=== PATIENT | female | born 1960 | race Caucasian/White ===

== ENCOUNTER 2023-04-29 10:12 | Emergency (ER) | payer BC, SELFPAY ==
[2023-04-29 10:17] VITALS: BP 113/77; PULSE 65; RESP 15; TEMP 36.8; O2SAT 100
--- NOTE | 2023-04-29 10:25 | ED.GENADUL_ITS ---
Discharge Plan Disposition Patient Disposition: Home Discharge Details Clinical Impression: Immunization, tetanus-diphtheria, Forehead laceration, Pain of right thumb Primary Care Provider: Unknown,Unknown ED Provider: John Keen Home Meds and New Rx's Prescriptions: Continued omeprazole 40 mg Capsule,Delayed Release(Dr/Ec) 40 mg DAILY Discharge Instructions Instructions: Facial Laceration (ED) Additional Instructions: You were seen in the emergency department for your fall. You had stitches placed which will need to be removed in 1 week. Please return to the emergency department or follow-up with your primary care provider to have your stitches removed. As we discussed, if you develop any redness streaking signs of infection fevers or any foul-smelling drainage from your wound please return to the emergency department. Your tetanus was updated in the emergency department. For your pain please take medications as follows: 1. Take acetaminophen (Tylenol), 1,000 mg (two 500 mg tabs) every 6 hours 2. Take ibuprofen (Advil), 400 mg every 6 hours. Discharge Data Discharge Date/Time-TO BE ENTERED AT DEPARTURE: 04/29/23 12:03 Medical Decision Making This is an overall very well-appearing normothermic and not tachycardic ytymb-zqta-tchdozul female with fall and forehead laceration which will require primary closure following irrigation. We will update patient's tetanus status. [place] [facility] Criteria Major Criteria GCS < 15 : [No] Open or depressed skull Fx: [No] Sign of Basilar Skull Fx: [No] > 2 Episodes Vomiting: [No] Anticoagulation: [No] Age > 65: [No] Minor Criteria Retrograde Amnesia >30min: [No] Dangerous Mechanism: [No] Per [place] [facility] CT rules, CT head not obtained. The patient had a GCS of 15, no open/depressed skull fracture, no signs of basilar skull fracture (hemotympanum, raccoon eyes, zaman's sign, CSF [place]/Rhinorrhea), no vomiting, an d is less than 65 years of age. Per [facility] criteria, cervical CT not obtained. The patient had no c-spine midline tenderness, no evidence of intoxication, was AAOx3, had no focal neurological deficits, and no painful distracting injuries. Patient does have a left shoulder superficial abrasion but no underlying bony tenderness and full range of motion so my suspicion is exceedingly low dislocation. Patient does have some right hip tenderness but has been ambulatory since her fall and so my suspicion for any acute osseous abnormality is exceedingly low based on the patient's nongeriatric age so I did not obtain plain films. Patient does have some right thumb pain and did fall with a racquet in her hand concerning for the possibility of an ulnar collateral ligament injury. She has no significant laxity of her ulnar collateral ligament and no significant weakness of her pinch. Will obtain plain films to reassess. 11:50 AM Patient had negative right hand plain films. Based on her lack of weakness on pincer grasp and her lack of weakness on ulnar stress testing of her right thumb I felt that the risks of immobilization outweighed the benefit. We discussed risks of immobilization specifically decreased mobility as patient is a aphlf-wecy-rceybcgi teacher. I did provide her with a Velcro wrist brace such that she could ice her right hand and rest over the next several days. I advised that if she had any significant weakness or pain that did not resolve that she should follow-up next week with either her primary care provider or an orthopedic surgeon as there is certainly a possibility that she could have injured her metacarpalphalangeal ulnar ligament of her thumb. She understood her follow-up medications and was discharged with recommendation for as needed acetaminophen and ibuprofen for pain. HPI General Date/Time Provider Initiated Documentation: 04/29/23 10:25 . HPI Narrative: This is a previously healthy qrdom-ibia-lkbisfiw 63-year-old female arrived to the emergency department via private vehicle in the setting of a fall. Patient was reportedly playing pickle ball this morning when she tripped after falling backwards. She landed on her right side. She was holding a racquet in her right hand when she fell. She sustained a laceration to the right forehead. She did not lose consciousness. She is not on any anticoagulation. She is having pain in her right thumb and right shoulder. No preceding syncope nausea nor vomiting. She has been ambulatory since her fall. She had some pain in her right hip. She was in her usual state of health earlier this morning. 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 Related Data Home Medications Medication Instructions Recorded Confirmed omeprazole 40 mg capsule,delayed 40 mg DAILY 04/29/23 04/29/23 release Allergies Allergy/AdvReac Type Severity Reaction Status Date / Time No Known Allergies Allergy Unverified 04/29/23 10:23 General Stated Complaint: Fall/Non TraumaCriteria MARY: 3 PFSH All Active Problems (Updated 04/29/23 @ 10:40 by John Keen MD) Immunization, tetanus-diphtheria (Acute) Forehead laceration (Acute) Pain of right thumb (Acute) Social History Smoking/Tobacco Use Status: Never Smoking risk assessment performed?: Yes Alcohol Intake: never Substance use type: does not use Housing: house Do you feel safe at home: Yes Do you feel safe in your relationship?: Yes Exam Narrative Exam Narrative: General: Well-appearing in no acute distress speaking in complete sentences. Head: Normocephalic, atraumatic. Eye: Extraocular eye movements intact. No conjunctival injection. No scleral icterus. Ear, nose, mouth, throat: Grossly normal inspection. Normal voice, handling secretions normally. No hemotympanum bilaterally. No septal hematoma. Neck: Trachea midline. No midline cervical spinal tenderness. Cardiovascular: Well-perfused distal extremities. Regular rate and rhythm Respiratory: Nonlabored respiration. Clear lungs bilaterally. Gastrointestinal: Nondistended abdomen. Musculoskeletal: No edema. Moving all 4 extremities spontaneously. Right shoulder with superficial abrasion. Full range of motion right shoulder. Right upper extremity no tenderness throughout upper arm elbow and right forearm and wrist. Right hand tenderness at the base of the right thumb. No significant laxity on stress testing of the right thumb. Full range of motion right thumb. 2+ radial pulse. Sensation motor function intact in the right hand across the radial, median, and ulnar nerve distributions. No significant weakness on right finger pincer grasp. Full range of motion right hip. No lacerations nor abrasions to right hip. Skin: Normal for age and race, grossly normal temperature and turgor. No acute rash. Neurologic: Alert and appropriate, no apparent acute deficits. GCS 15. Psychiatric: Mood and manner are appropriate. Grooming and personal hygiene are appropriate. Course Vital Signs Vital signs: Vital Signs Temperature 36.8 C 04/29/23 10:17 Pulse 65 04/29/23 10:17 Respiratory Rate 15 04/29/23 10:17 Blood Pressure 113/77 04/29/23 10:17 Pulse Oximetry 100 04/29/23 10:17 Temperature 36.8 C 04/29/23 10:17 Pulse 65 04/29/23 10:17 Respiratory Rate 15 04/29/23 10:17 Respiratory Effort Normal 04/29/23 10:17 Blood Pressure 113/77 04/29/23 10:17 Blood Pressure Position Sitting 04/29/23 10:17 Pulse Oximetry 100 04/29/23 10:17 Oxygen Delivery Method Room Air 04/29/23 10:17 Oxygen Flow Rate 0 04/29/23 10:17 Pain Level 3 04/29/23 10:17 Procedures Laceration Laceration 1: Site: face (Forehead) Side (If applicable): right Size (cm): 2 Description: linear Depth: simple, single layer Local Anesthetic: other anesthetic (LET) Pre-repair: wound explored and irrigated extensively Skin layer closed with: other (5-0 Prolene) Size (cm): 5-0 Number of sutures: 3 Technique: other (1 single centrally located vertical mattress suture flanked by 2 simple interrupted sutures.)
--- NOTE | 2023-04-29 10:30 | DI.RAD_ITS ---
Exam(s) XR HAND RT COMPLETE EXAM: XR HAND RT COMPLETE CLINICAL HISTORY: Right thumb pain status post fall with racquet. TECHNIQUE: 2D digital imaging was performed. Three views. COMPARISON: No exams were available for comparison FINDINGS: BONES: No acute fracture is present. No bony destructive lesion is seen. JOINTS: No dislocation present. SOFT TISSUE: Normal. IMPRESSION: Unremarkable radiographs of the right hand. DATA REPOSITORY: RADIATION DOSE DELIVERED:
[2023-04-29] MEDS: Lidocaine/Epinephri/Tetracaine Topical Gel 3 ML TP (10:48)
[2023-04-29] MEDS: Ibuprofen 600 MG TAB PO (10:50)
[2023-04-29] MEDS: Acetaminophen 500 MG TAB 1000 MG PO (10:50)
[2023-04-29 12:03] VITALS: BP 118/70; PULSE 60; RESP 16; O2SAT 99
== END 2023-04-29 12:03 | disposition home or self-care (01) ==
PROVIDERS: Emergency Provider Emergency Medicine
DX: S01.81XA Laceration without foreign body of other part of head, initial encounter (principal); M79.644 Pain in right finger(s); M25.551 Pain in right hip; W01.0XXA Fall on same level from slipping, tripping and stumbling without subsequent striking against object, initial encounter; Y93.73 Activity, racquet and hand sports
CPT/HCPCS: 12011; 90471; 99283; 73130